=== PATIENT | male | born 1970 | race Caucasian/White ===

== ENCOUNTER 2017-03-02 16:51 | Emergency (ER) | payer SELFPAY ==
[2017-03-02 17:35] VITALS: BP 121/81
[2017-03-02] MEDS ORDERED: Lidocaine 1% 10 ML MDV INJECT ONE (18:18)
--- NOTE | 2017-03-02 18:25 | EDM.PDOC ---
ED HPI GENERAL MEDICAL PROBLEM - General Chief Complaint: Laceration Stated Complaint: LACERATION TO L HAND Time Seen by Provider: 03/02/17 18:18 Source of Information: Reports: Patient History Limitations: Reports: No Limitations - History of Present Illness INITIAL COMMENTS - FREE TEXT/NARRATIVE: Patient is a 46-year-old male who presents ED complaining of a small laceration measuring 1.2 cm to the dorsal aspect of the left hand between the thumb and the index finger. Bleeding controlled. 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 Tetanus status is up-to-date. Patient has no sensory/motor deficits distally. No other complaints. Left Hand Pain Score (Numeric/FACES): 8 - Related Data Allergies Allergy/AdvReac Type Severity Reaction Status Date / Time No Known Allergies Allergy Verified 01/31/15 17:18 Home Meds: Home Meds . [No Known Home Meds] 03/02/17 [History] Past Medical History - Past Health History Medical/Surgical History: Denies Medical/Surgical History Social & Family History - Tobacco Use Smoking Status *Q: Never Smoker Second Hand Smoke Exposure: No - Caffeine Use Caffeine Use: Reports: Coffee - Alcohol Use Days Per Week of Alcohol Use: 3 Number of Drinks Per Day: 6 Total Drinks Per Week: 18 - Recreational Drug Use Recreational Drug Use: No ED ROS GENERAL - Review of Systems Review Of Systems: ROS reveals no pertinent complaints other than HPI. ED EXAM, SKIN/RASH Exam: See Below Exam Limited By: No Limitations General Appearance: Alert, WD/WN, No Apparent Distress Ears: Hearing Grossly Normal Nose: Normal Inspection Throat/Mouth: Normal Voice, No Airway Compromise Neck: Normal Inspection, Supple Respiratory/Chest: No Respiratory Distress, No Accessory Muscle Use Cardiovascular: Normal Peripheral Pulses, Regular Rate, Rhythm Peripheral Pulses: 2+: Radial (R) Neurological: Alert, Oriented, Normal Cognition, No Motor/Sensory Deficits Psychiatric: Normal Affect, Normal Mood Skin: Warm, Dry, Normal Color Location, Skin: Other (1.2 cm deep laceration to the dorsal aspect of left hand. No foreign objects present. Benign exam to the fingers or any parts of the hand.) ED SKIN PROCEDURES - Laceration/Wound Repair Left Hand Lac/Wound length In cm: 1.2 Appearance: Subcutaneous, Clean Distal NVT: Neuro & Vascular Intact, No Tendon Injury Anesthetic Type: Local Local Anesthesia - Lidocaine (Xylocaine): 1% Plain Local Anesthetic Volume: 4cc Skin Prep: Chlorhexidine (Hibiciens), Saline, Sterile Drape Exploration/Debridement/Repair: Wound Explored, In a Bloodless Field, Explored to Base, No Foreign Material Found Closed with: Sutures Suture Size: 4-0 # of Sutures: 3 Suture Type: Prolene, Interrupted, Simple Sterile Dressing Applied: Provider Tetanus Status Addressed: Yes Complications: No Course - Vital Signs Last Recorded V/S: Last Vital Signs Temp 98.8 F 03/02/17 17:34 Pulse 74 03/02/17 17:34 Resp 20 03/02/17 17:34 BP 121/81 03/02/17 17:34 Pulse Ox 96 03/02/17 17:34 - Orders/Labs/Meds Meds: Medications Discontinued Medications Generic Name Dose Route Start Last Admin Trade Name Van PRN Reason Stop Dose Admin Lidocaine HCl 10 ml 03/02/17 18:18 03/02/17 18:27 Xylocaine 1% INJECT 03/02/17 18:19 10 ml ONETIME ONE Administration - Re-Assessments/Exams Free Text/Narrative Re-Assessment/Exam: Ordered 1% lidocaine. Laceration closed no competitions. Discharge instructions as documented. Departure - Departure Time of Disposition: 18:54 Disposition: Home, Self-Care 01 Condition: Good Clinical Impression: Laceration of hand Qualifiers: Encounter type: initial encounter Foreign body presence: without foreign body Laterality: left Qualified Code(s): S61.412A - Laceration without foreign body of left hand, initial encounter - Discharge Information Instructions: Laceration Care, Adult, [id number], Stitches, Sloan, or Adhesive Wound Closure, [id number] Referrals: PCP,None [Primary Care Provider] - Forms: ED Department Discharge Additional Instructions: Cleanse site twice daily with soap and water, pat dry, reapply triple antibiotic ointment, and dressing. Do not soak wound. Keep wound clean and dry. Follow-up with a provider at [facility] in 10 days for suture removal. Return to the ED for any new or worsening symptoms.
== END 2017-03-02 18:54 | disposition home or self-care (01) ==
LOC: JD.ED 16:51
DX: S61.412A Laceration without foreign body of left hand, initial encounter (principal); W26.0XXA Contact with knife, initial encounter
CPT/HCPCS: 12001; 99282-25; 99283-25

== ENCOUNTER 2018-01-04 04:08 | Emergency (ER) | payer SELFPAY ==
[2018-01-04 04:17] VITALS: BP 114/64
[2018-01-04] MEDS ORDERED: methylPREDNISolone Sodium Succinate 125 MG/2 ML SDV IM ONE (04:32)
--- NOTE | 2018-01-04 04:40 | EDM.PDOC ---
ED HPI GENERAL MEDICAL PROBLEM - General Chief Complaint: Upper Extremity Injury/Pain Stated Complaint: LEFT ARM UNABLE TO MOVE... Time Seen by Provider: 01/04/18 04:21 Source of Information: Reports: Patient History Limitations: Reports: No Limitations - History of Present Illness INITIAL COMMENTS - FREE TEXT/NARRATIVE: This is a 47-year-old male. Apparently he got drunk this evening and he laid down and laid on his left arm and he when he awoke about 30 minutes ago he was unable to extend his wrist and he has numbness on his dorsal forearm and hand. He has much decreased in strength on the left hand as well. He is able to use the elbow without difficulty and raise his upper arm with the shoulder without difficulty he just has a hard time gripping as well as got wrist drop. He denies any other acute injuries he denies any other weakness. Left Arm Pain Score (Numeric/FACES): 0 - Related Data Allergies Allergy/AdvReac Type Severity Reaction Status Date / Time No Known Allergies Allergy Verified 01/04/18 04:17 Home Meds: Home Meds predniSONE 40 mg PO WITHBREAKFAST #5 tab 01/04/18 [Rx] Past Medical History - Past Health History Medical/Surgical History: Denies Medical/Surgical History Social & Family History - Tobacco Use Smoking Status *Q: Current Every Day Smoker Years of Tobacco use: 20 Packs/Tins Daily: 0.5 Used Tobacco, but Quit: No - Caffeine Use Caffeine Use: Reports: Coffee - Recreational Drug Use Recreational Drug Use: No Review of Systems - Review of Systems Review Of Systems: See Below Constitutional: Denies: Chills, Fever Eyes: Reports: No Symptoms Ears: Reports: No Symptoms Nose: Reports: No Symptoms Mouth/Throat: Reports: No Symptoms Respiratory: Reports: No Symptoms Cardiovascular: Reports: No Symptoms GI/Abdominal: Reports: No Symptoms Genitourinary: Reports: No Symptoms Musculoskeletal: Reports: Other (As per history of present illness) Skin: Reports: Other (As per history of present illness) Neurological: Reports: Numbness, Weakness Psychiatric: Reports: No Symptoms ED EXAM, GENERAL - Physical Exam Exam: See Below Exam Limited By: No Limitations General Appearance: Alert, WD/WN, No Apparent Distress Eye Exam: Bilateral Eye: Normal Inspection Ears: Normal External Exam Nose: Normal Inspection Throat/Mouth: Normal Inspection, Normal Lips, Normal Voice, No Airway Compromise Head: Normocephalic Neck: Supple Respiratory/Chest: No Respiratory Distress Back Exam: Full Range of Motion Extremities: Other (His left upper extremity he is able to move his shoulder with no difficulty in his elbow with no difficulty, however he has numbness down his dorsal forearm into the dorsal hand but not his fingers, he has a wrist drop and has difficult time in extending the wrist, when he attempts to pari mutuel clerk my hand he tends to flex the wrist at the same time, this all suggests a radial nerve palsy) Neurological: Alert, Oriented Psychiatric: Anxious Skin Exam: Warm, Dry Course - Vital Signs Last Recorded V/S: Last Vital Signs Temp 98.1 F 01/04/18 04:14 Pulse 70 01/04/18 04:14 Resp 18 01/04/18 04:14 BP 114/64 01/04/18 04:14 Pulse Ox 98 01/04/18 04:14 - Orders/Labs/Meds Orders: Active Orders 24 hr Category Date Time Status methylPREDNISolone Sod Succ [Solu-MEDROL] Med 01/04/18 04:32 Once 125 mg IM ONETIME ONE Departure - Departure Time of Disposition: 04:35 Disposition: Home, Self-Care 01 Condition: Fair Clinical Impression: Acute radial nerve palsy of left upper extremity - Discharge Information *PRESCRIPTION DRUG MONITORING PROGRAM REVIEWED*: Not Applicable *COPY OF PRESCRIPTION DRUG MONITORING REPORT IN PATIENT DEANN: Not Applicable Prescriptions: predniSONE 40 mg PO WITHBREAKFAST #5 tab Referrals: Jose Manuel Marie MD [Physician] - Forms: ED Department Discharge, ED Return to Work/School Form Additional Instructions: It is very important that you start the prednisone Friday morning and take it for 5 days, it also is very important that you gently massage the muscles in your left forearm and continue to try to use those muscles gently and pari mutuel clerk gently throughout the day, you must follow up with Dr. Marie' and call his Office on Friday for he is the specialist who is able to help with this radial nerve palsy, under no circumstances are you to get drunk again since you can cause further damage to the radial nerve if you lay on your left arm again, return to the ER as needed - My Orders Last 24 Hours: My Active Orders 01/04/18 04:32 methylPREDNISolone Sod Succ [Solu-MEDROL] 125 mg IM ONETIME ONE - Assessment/Plan Last 24 Hours: My Active Orders 01/04/18 04:32 methylPREDNISolone Sod Succ [Solu-MEDROL] 125 mg IM ONETIME ONE
== END 2018-01-04 04:46 | disposition home or self-care (01) ==
LOC: JD.ED 04:08
DX: G56.32 Lesion of radial nerve, left upper limb (principal); F17.210 Nicotine dependence, cigarettes, uncomplicated
CPT/HCPCS: 96372; 99283; J2930; 99284

== ENCOUNTER 2019-11-16 16:37 | Emergency (ER) | payer SELFPAY ==
[2019-11-16 16:59] VITALS: BP 120/93; PULSE 95
[2019-11-16] MEDS ORDERED: Ketorolac 60 MG/2 ML SDV IM ONE (17:17)
--- NOTE | 2019-11-16 17:27 | EDM.PDOC ---
ED HPI GENERAL MEDICAL PROBLEM - General Chief Complaint: Lower Extremity Injury/Pain Stated Complaint: RT LOWER LEG SWOLLEN Time Seen by Provider: 11/16/19 17:04 Source of Information: Reports: Patient, RN Notes Reviewed History Limitations: Reports: No Limitations - History of Present Illness INITIAL COMMENTS - FREE TEXT/NARRATIVE: Patient is a 49-year-old male who presents to the ED for the evaluation of a right lower leg issue. Patient notes yesterday he noticed a small painful bump on the back of his right lower leg. He notes that he woke up this morning around 2:30 AM, and his whole leg was swollen, red/hot and very painful. He did go to the clinic this morning, and they believe this to be a cellulitis and started him on Keflex, states he did take 1 dose this morning. Patient states he is somewhat worried about a blood clot, but he has no history of blood clots. 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 Patient denies any other sick- like symptoms, fever/chills, cough/shortness of breath, nausea/v omiting/diarrhea. He denies any numbness or tingling distal to the area of concern. Right Leg Pain Score (Numeric/FACES): 8 - Related Data Allergies Allergy/AdvReac Type Severity Reaction Status Date / Time No Known Allergies Allergy Verified 11/16/19 16:58 Home Meds: Home Meds predniSONE 40 mg PO WITHBREAKFAST #5 tab 01/04/18 [Rx] Past Medical History - Past Health History Medical/Surgical History: Denies Medical/Surgical History Psychiatric History: Reports: Anxiety Social & Family History - Tobacco Use Smoking Status *Q: Light Tobacco Smoker Years of Tobacco use: 1 Packs/Tins Daily: 0.2 Second Hand Smoke Exposure: No - Caffeine Use Caffeine Use: Reports: Coffee - Recreational Drug Use Recreational Drug Use: No Review of Systems - Review of Systems Review Of Systems: Comprehensive ROS is negative, except as noted in HPI. ED EXAM, GENERAL - Physical Exam Exam: See Below Exam Limited By: No Limitations General Appearance: Alert, WD/WN, No Apparent Distress Respiratory/Chest: No Respiratory Distress, Lungs Clear, Normal Breath Sounds, No Accessory Muscle Use, Chest Non-Tender Cardiovascular: Normal Peripheral Pulses, Regular Rate, Rhythm, No Murmur Peripheral Pulses: 2+: Dorsalis Pedis (L), Dorsalis Pedis (R) Extremities: Normal Capillary Refill, Leg Pain (RLE), Increased Warmth (RLE), Redness (RLE) Neurological: Alert, Oriented, Normal Cognition, No Motor/Sensory Deficits Psychiatric: Normal Affect, Normal Mood Skin Exam: Warm, Dry, Intact, No Rash, Erythema (to RLE) Course - Vital Signs Last Recorded V/S: Last Vital Signs Temp 99.0 F 11/16/19 16:54 Pulse 95 11/16/19 16:54 Resp 16 11/16/19 16:54 BP 120/93 H 11/16/19 16:54 Pulse Ox 99 11/16/19 16:54 - Orders/Labs/Meds Meds: Medications Discontinued Medications Generic Name Dose Route Start Last Admin Trade Name Freq PRN Reason Stop Dose Admin Ketorolac Tromethamine 60 mg 11/16/19 17:17 11/16/19 17:24 Toradol IM 11/16/19 17:18 60 mg ONETIME ONE Administration - Re-Assessments/Exams Free Text/Narrative Re-Assessment/Exam: 11/16/19 17:31 Patient presents to the ED for evaluation of his right lower extremity issue. Does appear he has a cellulitis, but due to the unilateral swelling, ultrasound will be performed to rule out DVT. Patient will be given 60 mg IM Toradol for initial pain management. 11/16/19 20:19 Sound has been done, and demonstrates no sign of a DVT. There is a mild amount of subcutaneous edema, which is appropriate for cellulitis. Patient will be discharged home with general recommendations. Departure - Departure Time of Disposition: 20:20 Disposition: Home, Self-Care 01 Condition: Good Clinical Impression: Cellulitis Qualifiers: Site of cellulitis: extremity Site of cellulitis of extremity: lower extremity Laterality: right Qualified Code(s): L03.115 - Cellulitis of right lower limb - Discharge Information *PRESCRIPTION DRUG MONITORING PROGRAM REVIEWED*: No *COPY OF PRESCRIPTION DRUG MONITORING REPORT IN PATIENT DEANN: No Instructions: Cellulitis, Adult, [id number] Referrals: PCP,None [Primary Care Provider] - Forms: ED Department Discharge Additional Instructions: You were evaluated in the ER today regarding a suspected skin infection/possible blood clot. Ultrasound demonstrated no sign of a blood clot within the right lower leg. It does appear that you have a cellulitis. Which is a skin infection that is treated with antibiotics.you were already given a prescription for Keflex, please take as previously prescribed. Please note that this antibiotic will take at least 48 hours to start working appropriately. You may try to use heat/ice packs to the area to help reduce pain/swelling. Please try to elevate the extremity as much as possible as well to help relieve some of the swelling. You may take 500 mg Tylenol or 600 mg ibuprofen every 6 hours as needed for further pain relief. Do not exceed 4000 mg Tylenol or 3200 mg ibuprofen in a 24-hour time span. Please return to the ER at any time if your symptoms change or worsen. Sepsis Event Note (ED) - Evaluation Sepsis Screening Result: No Definite Risk - Focused Exam Vital Signs: Vital Signs Temp Pulse Resp BP Pulse Ox 11/16/19 16:54 99.0 F 95 16 120/93 H 99
--- NOTE | 2019-11-16 20:07 | US ---
Right lower extremity deep venous ultrasound: Duplex and color Doppler evaluation was obtained of the right common femoral, proximal greater saphenous, superficial femoral, popliteal, posterior tibial and peroneal veins. Findings: Mild amount of subcutaneous edema is seen. Normal phasic flow, augmentation and compression is seen. Impression: 1. Mild subcutaneous edema. 2. No evidence of deep venous thrombosis within the right lower extremity or within the left common femoral vein. Diagnostic code #2 This report was dictated in MDT
== END 2019-11-16 20:45 | disposition home or self-care (01) ==
LOC: JD.ED 16:37
DX: L03.115 Cellulitis of right lower limb (principal); F17.210 Nicotine dependence, cigarettes, uncomplicated
CPT/HCPCS: 93971; 96372; 99283; J1885

== ENCOUNTER 2020-10-31 18:10 | Emergency (ER) | payer OTHER ==
[2020-10-31 18:40] VITALS: PULSE 120
[2020-10-31] MEDS ORDERED: Sodium Chloride 0.9% 10 ML Syringe FLUSH PRN (18:55)
[2020-10-31] MEDS ORDERED: methylPREDNISolone Sodium Succinate 125 MG/2 ML SDV IVPUSH ONE (18:56)
[2020-10-31] MEDS ORDERED: HYDROmorphone 1 MG/ML Syringe IVPUSH ONE (18:56)
[2020-10-31] MEDS ORDERED: Ketorolac 30 MG/ML SDV IVPUSH ONE (18:56)
--- NOTE | 2020-10-31 19:19 | EDM.PDOC ---
ED HPI GENERAL MEDICAL PROBLEM - General Chief Complaint: Lower Extremity Injury/Pain Stated Complaint: BACK PAIN/ LT LEG PAIN Time Seen by Provider: 10/31/20 18:46 Source of Information: Reports: Patient History Limitations: Reports: No Limitations - History of Present Illness INITIAL COMMENTS - FREE TEXT/NARRATIVE: The patient presents with left leg pain. This started a couple weeks ago. He had no injury. 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 He went to [facility] and they gave him some prednisone and it helped. He stopped taking it because it felt better. Last night the pain started up again. He was told it was sciatica. He has some mild pain in the back but it mostly shoots down his leg. He cannot get comfortable and no over the counter medications have been helping. He has some numbness to his left lateral foot. He has no weakness but he cannot stand up strait due to the pain. He has no bowel or bladder problems. Onset: Gradual Duration: Day(s): (Yesterday) Location: Reports: Lower Extremity, Left Quality: Reports: Sharp Severity: Severe Improves with: Reports: Immobilization Worsens with: Reports: Movement Context: Denies: Trauma Associated Symptoms: Reports: No Other Symptoms Left Posterior Leg Pain Score (Numeric/FACES): 10 - Related Data Allergies Allergy/AdvReac Type Severity Reaction Status Date / Time No Known Allergies Allergy Verified 10/31/20 18:39 Home Meds: Home Meds Hydrocodone/Acetaminophen [Hydrocodone-Acetamin 5-325 mg] 1 - 2 each PO Q6H PRN #15 tablet 10/31/20 [Rx] diazePAM [Valium] 5 mg PO TID PRN #20 tablet 10/31/20 [Rx] predniSONE [Prednisone] 40 mg PO DAILY #10 tablet 10/31/20 [Rx] Past Medical History - Past Health History Medical/Surgical History: Denies Medical/Surgical History Psychiatric History: Reports: Anxiety Social & Family History - Tobacco Use Tobacco Use Status *Q: Current Every Day Tobacco User Years of Tobacco use: 30 Packs/Tins Daily: 0.5 - Caffeine Use Caffeine Use: Reports: Coffee - Recreational Drug Use Recreational Drug Use: No Review of Systems - Review of Systems Review Of Systems: See Below Constitutional: Reports: No Symptoms Eyes: Reports: No Symptoms Ears: Reports: No Symptoms Nose: Reports: No Symptoms Mouth/Throat: Reports: No Symptoms Respiratory: Reports: No Symptoms Cardiovascular: Reports: No Symptoms GI/Abdominal: Reports: No Symptoms Genitourinary: Reports: No Symptoms Musculoskeletal: Reports: Back Pain, Other (left leg pain) ED EXAM, GENERAL - Physical Exam Exam: See Below Exam Limited By: No Limitations General Appearance: Alert, No Apparent Distress Ears: Normal External Exam Nose: Normal Inspection Head: Atraumatic, Normocephalic Neck: Normal Inspection Respiratory/Chest: No Respiratory Distress, Lungs Clear, Normal Breath Sounds Cardiovascular: Regular Rate, Rhythm, No Edema, No Murmur GI/Abdominal: Soft, Non-Tender, No Organomegaly, No Mass Back Exam: Other (Mild pain upon palpation to the left lower back) Extremities: Other (pain upon palpation to the left lateral thigh. Good pulses distally and no edema.) Neurological: Alert, Oriented, Other (mild numbness to the left lateral foot.) Course - Vital Signs Last Recorded V/S: Last Vital Signs Temp 97.8 F 10/31/20 18:36 Pulse 120 H 10/31/20 18:36 Resp 16 10/31/20 18:36 BP Pulse Ox 100 10/31/20 18:36 - Orders/Labs/Meds Orders: Active Orders 24 hr Category Date Time Status Peripheral IV Care [RC] . DIRECTED Care 10/31/20 18:55 Active Sodium Chloride 0.9% [Saline Flush] Med 10/31/20 18:55 Active 10 ml FLUSH ASDIRECTED PRN Peripheral IV Insertion Adult [OM.PC] Routine Oth 10/31/20 18:55 Ordered Medication Orders Sodium Chloride (Sodium Chloride 0.9% 10 Ml Syringe) 10 ml FLUSH ASDIRECTED PRN PRN Reason: Keep Vein Open Last Admin: 10/31/20 19:10 Dose: 10 ml Documented by: VITALY Meds: Medications Generic Name Dose Route Start Last Admin Trade Name Freq PRN Reason Stop Dose Admin Sodium Chloride 10 ml 10/31/20 18:55 10/31/20 19:10 Sodium Chloride 0.9% 10 Ml Syringe FLUSH 10 ml ASDIRECTED PRN Administration Keep Vein Open Discontinued Medications Generic Name Dose Route Start Last Admin Trade Name Freq PRN Reason Stop Dose Admin Diazepam 5 mg 10/31/20 20:08 10/31/20 20:20 Diazepam 10 Mg/2 Ml Syringe IVPUSH 10/31/20 20:09 5 mg ONETIME ONE Administration Hydromorphone HCl 1 mg 10/31/20 18:56 10/31/20 19:09 Hydromorphone 1 Mg/Ml Syringe IVPUSH 10/31/20 18:57 1 mg ONETIME ONE Administration Hydromorphone HCl 0.5 mg 10/31/20 20:09 10/31/20 20:22 Hydromorphone 0.5 Mg/0.5 Ml Syringe IVPUSH 10/31/20 20:10 0.5 mg ONETIME ONE Administration Ketorolac Tromethamine 30 mg 10/31/20 18:56 10/31/20 19:07 Ketorolac 30 Mg/Ml Sdv IVPUSH 10/31/20 18:57 30 mg ONETIME ONE Administration Methylprednisolone Sodium Succinate 125 mg 10/31/20 18:56 10/31/20 19:08 Methylprednisolone Sodium Succinate 125 Mg/2 Ml Sdv IVPUSH 10/31/20 18:57 125 mg ONETIME ONE Administration - Re-Assessments/Exams Free Text/Narrative Re-Assessment/Exam: 10/31/20 19:19 I ordered an IV saline lock, dilaudid 1mg IV, toradol 30mg IV, solu-medrol 125mg IV and an x-ray of his back. 10/31/20 21:08 The x-ray shows minimal degenerative change. Straightening of the lordotic curve within the lumbar spine as noted above. Nothing acute is seen. He said he feels worse. I gave him valium 5mg IV and dilaudid 0.5mg IV and he feels better. I will get him on some prednisone, valium and hydrocodone. Departure - Departure Time of Disposition: 21:15 Disposition: Home, Self-Care 01 Condition: Good Clinical Impression: Low back pain Qualifiers: Chronicity: acute Back pain laterality: left Sciatica presence: with sciatica Sciatica laterality: sciatica of left side Qualified Code(s): M54.42 - Lumbago with sciatica, left side - Discharge Information *PRESCRIPTION DRUG MONITORING PROGRAM REVIEWED*: Not Applicable *COPY OF PRESCRIPTION DRUG MONITORING REPORT IN PATIENT DEANN: Not Applicable Prescriptions: Hydrocodone/Acetaminophen [Hydrocodone-Acetamin 5-325 mg] 1 - 2 each PO Q6H PRN #15 tablet PRN Reason: Pain predniSONE [Prednisone] 40 mg PO DAILY #10 tablet diazePAM [Valium] 5 mg PO TID PRN #20 tablet PRN Reason: Pain Referrals: PCP,None [Primary Care Provider] - Jen Abrams MD [Physician] - 1 Week Forms: ED Department Discharge, ED Return to Work/School Form Additional Instructions: Take the prednisone daily for 5 days. Take the valium 5mg by mouth every 8 hours as needed for back pain. If that is not helping try the hydrocodone. Do not drive or work when taking the valium and hydrocodone. Follow up with Dr Abrams or any other provider in [facility]. If this does not get better, you may need an MRI of your back to look at the discs and nerves. Please return if you are worse. Sepsis Event Note (ED) - Evaluation Sepsis Screening Result: No Definite Risk - Focused Exam Vital Signs: Vital Signs Temp Pulse Resp Pulse Ox 10/31/20 18:36 97.8 F 120 H 16 100 - My Orders Last 24 Hours: My Active Orders 10/31/20 18:55 Peripheral IV Care [RC] . DIRECTED Sodium Chloride 0.9% [Saline Flush] 10 ml FLUSH ASDIRECTED PRN Peripheral IV Insertion Adult [OM.PC] Routine - Assessment/Plan Last 24 Hours: My Active Orders 10/31/20 18:55 Peripheral IV Care [RC] . DIRECTED Sodium Chloride 0.9% [Saline Flush] 10 ml FLUSH ASDIRECTED PRN Peripheral IV Insertion Adult [OM.PC] Routine
--- NOTE | 2020-10-31 20:02 | CR ---
Lumbar spine: AP, lateral and coned-down lateral views centered to the lumbosacral junction were obtained. Comparison: No prior lumbar spine imaging is available. Minimal disc space narrowing is seen at L5-S1 with slight anterior osteophytes. Other disc spaces and vertebral body heights are maintained. Very minimal scattered anterior and lateral osteophytes are noted. Sacroiliac joints are normal. Straightening of the normal lordotic curve is seen which can be due to muscle spasm as well as congenital. Pedicles are intact. Visualized transverse and spinous processes are intact. Impression: 1. Minimal degenerative change. 2. Straightening of the lordotic curve within the lumbar spine as noted above. 3. Nothing acute is seen. Diagnostic code #2
[2020-10-31] MEDS ORDERED: HYDROmorphone 0.5 MG/0.5 ML Syringe IVPUSH ONE (20:09)
== END 2020-10-31 21:41 | disposition home or self-care (01) ==
LOC: JD.ED 18:10
DX: M54.42 Lumbago with sciatica, left side (principal); Z72.0 Tobacco use
CPT/HCPCS: 72100; 96374; 96375; 96376; 99283; J1170; J1885; J2930; J3360

== ENCOUNTER 2023-01-14 18:38 | Emergency (ER) | payer OTHER ==
[2023-01-14 19:06] VITALS: BP 136/99; PULSE 74
[2023-01-14] MEDS ORDERED: Cephalexin 500 MG Cap PO ONE (22:00)
[2023-01-14] MEDS ORDERED: Acetaminophen/HYDROcodone 325-5 MG Tab PO ONE (22:19)
[2023-01-14] MEDS ORDERED: Diphtheria,Pertussis(Acell),Tetanus Vaccine 0.5 ML Syringe IM ONE (22:19)
== END 2023-01-14 22:25 | disposition home or self-care (01) ==
LOC: JD.ED 18:38
DX: S80.251A Superficial foreign body, right knee, initial encounter (principal); Z23 Encounter for immunization; W45.8XXA Other foreign body or object entering through skin, initial encounter
CPT/HCPCS: 73562; 90471; 90715; 99283; A9270

== ENCOUNTER 2023-02-12 10:00 | Day surgery (SDC) | payer OTHER ==
[~2023-02-12 10:00] MED LIST: Lactated Ringers 1,000 ML IV SCH; Sodium Chloride 0.9% 10 ML Syringe FLUSH PRN; Sodium Chloride 0.9% 10 ML Syringe FLUSH SCH
[2023-02-12] MEDS ORDERED: Midazolam 1 MG/ML 2 ML SDV IVPUSH ONE (11:12)
[2023-02-12] MEDS ORDERED: Propofol 200 MG/20 ML SDV ONE ×2 (11:14→12:08)
[2023-02-12] MEDS ORDERED: fentaNYL 100 MCG/2 ML SDV ONE (11:15)
[2023-02-12] MEDS ORDERED: Ketamine 500 mg/10 ML MDV ONE (11:15)
[2023-02-12] MEDS ORDERED: Ropivacaine 0.5% 5 MG/ML 30 ML SDV ONE (11:23)
[2023-02-12] MEDS ORDERED: Ondansetron 4 MG/2 ML SDV ONE (11:30)
[2023-02-12] MEDS ORDERED: ceFAZolin 2 GM Vial ONE (11:30)
[2023-02-12] MEDS ORDERED: Ondansetron 4 MG/2 ML SDV IVPUSH PRN (11:33)
[2023-02-12] MEDS ORDERED: fentaNYL 100 MCG/2 ML SDV IVPUSH PRN (11:33)
[2023-02-12] MEDS ORDERED: HYDROmorphone 0.5 MG/0.5 ML Syringe IVPUSH PRN (11:33)
[2023-02-12] MEDS ORDERED: Lidocaine 1% 10 ML MDV ONE (11:41)
[2023-02-12] MEDS ORDERED: Bupivacaine 0.25% 10 ML SDV ONE (11:41)
[2023-02-12 14:34] VITALS: BP 126/71; PULSE 72
== END 2023-02-12 13:30 | disposition home or self-care (01) ==
LOC: JD.SDS 10:00
PROVIDERS: ATTEND Orthopaedic Surgery
DX: M79.5 Residual foreign body in soft tissue (principal); F41.9 Anxiety disorder, unspecified; Z79.899 Other long term (current) drug therapy; Z88.8 Allergy status to other drugs, medicaments and biological substances; Z87.891 Personal history of nicotine dependence
CPT/HCPCS: 27372; 76000; J0690; J2405; J2704; J3010; J3490; J7120; 00400; J2795

== ENCOUNTER 2023-03-17 05:30 | Emergency (ER) | payer OTHER ==
[2023-03-17] MEDS ORDERED: Metoclopramide 10 MG/2 ML SDV IVPUSH ONE (06:13)
[2023-03-17] MEDS ORDERED: HYDROmorphone 1 MG/ML Syringe IVPUSH ONE (06:14)
[2023-03-17] MEDS ORDERED: Dextrose 5%-Lactated Ringers 1,000 ML IV SCH (06:15)
[2023-03-17 06:31] LABS: BASOPHILS PERCENT AUTO 0.2 % (0.0-1.0); EOSINOPHILS PERCENT AUTO 0.1 % (0.0-6.0); HEMATOCRIT 44.4 % (42.0-52.0); HEMOGLOBIN 15.6 gm/dl (14.0-18.0); IMMATURE GRAN ABSOLUTE AUTO 0.08 K/mm3 (0.00-0.05); IMMATURE GRAN PERCENT AUTO 0.6 % (0.0-0.4); LYMPHOCYTES ABSOLUTE AUTO 1.6 K/mm3 (1.0-4.8); MEAN CORPUSCULAR HEMOGLOBIN 34.3 pg (28.0-32.0); MEAN CORPUSCULAR HGB CONC 35.1 g/dl (32.0-36.0); MEAN CORPUSCULAR VOLUME 97.6 fl (83.0-99.0); MEAN PLATELET VOLUME 8.8 fl (9.4-12.4); MONOCYTES ABSOLUTE AUTO 0.8 K/mm3 (0.0-0.8); MONOCYTES PERCENT AUTO 5.4 % (0.0-8.0); NEUTROPHILS ABSOLUTE AUTO 11.8 K/mm3 (1.8-7.7); NEUTROPHILS PERCENT AUTO 82.7 % (41.0-71.0); PLATELET COUNT,PLT 314 K/mm3 (150-400); RED BLOOD CELL COUNT 4.55 M/mm3 (4.52-5.90); WHITE BLOOD CELL COUNT,WBC 14.29 K/mm3 (3.9-11.3)
[2023-03-17 06:50] LABS: A/G RATIO 0.9 (1-2); ALANINE AMINOTRANSFERASE,ALT 27 U/L (16-63); ALBUMIN 3.9 g/dl (3.4-5.0); ALKALINE PHOSPHATASE 76 U/L (46-116); ASPARTATE AMNIOTRANSFERASE,AST 27 U/L (15-37); BILIRUBIN TOTAL 0.3 mg/dL (0.2-1.0); BLOOD UREA NITROGEN,BUN 20 mg/dL (7-18); C-REACTIVE PROTEIN <0.2 mg/dL (<1.0); CARBON DIOXIDE,CO2 18 mEq/L (21-32); CHLORIDE,CL 96 mEq/L (98-107); EST CRCL DRUG DOSING (CG) 72.36 mL/min; ESTIMATED GFR 91 mL/min (>60); ETHANOL BLOOD MEDICAL 0.14 gm% (0.00); GLUCOSE RANDOM 97 mg/dL (70-99); PROTEIN TOTAL,TP 8.1 g/dl (6.4-8.2); SODIUM,NA 136 mEq/L (136-145)
[2023-03-17] MEDS ORDERED: Lactated Ringers 1,000 ML IV SCH (07:30)
[2023-03-17 12:15] VITALS: BP 109/61; PULSE 118
== END 2023-03-17 09:26 | disposition home or self-care (01) ==
LOC: JD.ED 05:30
DX: M54.41 Lumbago with sciatica, right side (principal); G89.29 Other chronic pain; T50.7X5A Adverse effect of analeptics and opioid receptor antagonists, initial encounter; R11.2 Nausea with vomiting, unspecified; Z88.8 Allergy status to other drugs, medicaments and biological substances; Z79.899 Other long term (current) drug therapy
CPT/HCPCS: 36415; 80053; 80307; 83690; 85025; 86140; 96361; 96374; 96375; 99284; J1170; J2765; J7120; J7121

== ENCOUNTER 2023-03-20 14:26 | Emergency (ER) | payer OTHER ==
[2023-03-20] MEDS ORDERED: predniSONE 20 MG Tab PO ONE (16:15)
[2023-03-20 18:18] VITALS: BP 128/85; PULSE 75
== END 2023-03-20 17:44 | disposition home or self-care (01) ==
LOC: JD.ED 14:26
DX: M47.27 Other spondylosis with radiculopathy, lumbosacral region (principal); Z79.899 Other long term (current) drug therapy; Z88.8 Allergy status to other drugs, medicaments and biological substances
CPT/HCPCS: 72100; 99283; J7512

== ENCOUNTER 2023-07-15 18:47 | Emergency (ER) | payer BC ==
[2023-07-15 19:30] LABS: BASOPHILS PERCENT AUTO 0.3 % (0.0-1.0); EOSINOPHILS PERCENT AUTO 0.2 % (0.0-6.0); HEMATOCRIT 39.8 % (42.0-52.0); HEMOGLOBIN 14.5 gm/dl (14.0-18.0); IMMATURE GRAN ABSOLUTE AUTO 0.04 K/mm3 (0.00-0.05); IMMATURE GRAN PERCENT AUTO 0.6 % (0.0-0.4); LYMPHOCYTES ABSOLUTE AUTO 0.9 K/mm3 (1.0-4.8); LYMPHOCYTES PERCENT AUTO 13.9 % (24.0-44.0); MEAN CORPUSCULAR HEMOGLOBIN 34.5 pg (28.0-32.0); MEAN CORPUSCULAR HGB CONC 36.4 g/dl (32.0-36.0); MEAN CORPUSCULAR VOLUME 94.8 fl (83.0-99.0); MEAN PLATELET VOLUME 9.6 fl (9.4-12.4); MONOCYTES ABSOLUTE AUTO 0.8 K/mm3 (0.0-0.8); MONOCYTES PERCENT AUTO 12.7 % (0.0-8.0); NEUTROPHILS ABSOLUTE AUTO 4.6 K/mm3 (1.8-7.7); NEUTROPHILS PERCENT AUTO 72.3 % (41.0-71.0); WHITE BLOOD CELL COUNT,WBC 6.31 K/mm3 (3.9-11.3)
[2023-07-15 19:34] LABS: PLATELET COUNT,PLT 56 K/mm3 (150-400)
[2023-07-15 19:52] LABS: SLIDE REVIEW ABNORMAL SMEAR
[2023-07-15 19:58] LABS: A/G RATIO 0.9 (1-2); ALBUMIN 3.1 g/dl (3.4-5.0); ANION GAP 18.2 (5-15); BILIRUBIN TOTAL 0.6 mg/dL (0.2-1.0); BUN/CREATININE RATIO 22.5 (14-18); CALCIUM 7.9 mg/dL (8.5-10.1); CREATININE 0.8 mg/dL (0.7-1.3); EST CRCL DRUG DOSING (CG) 87.69 mL/min; ETHANOL BLOOD MEDICAL 0.53 gm% (0.00); POTASSIUM,K 3.2 mEq/L (3.5-5.1); PROTEIN TOTAL,TP 6.4 g/dl (6.4-8.2); TSH 2.342 uIU/mL (0.358-3.74)
[2023-07-15 20:31] VITALS: BP 119/85; PULSE 100
== END 2023-07-15 20:33 | disposition home or self-care (01) ==
LOC: JD.ED 18:47
DX: F10.920 Alcohol use, unspecified with intoxication, uncomplicated (principal); Z88.8 Allergy status to other drugs, medicaments and biological substances; Z79.899 Other long term (current) drug therapy; Y90.2 Blood alcohol level of 40-59 mg/100 ml
CPT/HCPCS: 36415; 80053; 80143; 80179; 80307; 84443; 85025; 99282; 99284

== ENCOUNTER 2023-07-26 11:32 | Emergency (ER) | payer BC ==
[2023-07-26 12:44] LABS: BASOPHILS PERCENT AUTO 0.6 % (0.0-1.0); EOSINOPHILS PERCENT AUTO 0.4 % (0.0-6.0); HEMATOCRIT 28.8 % (42.0-52.0); HEMOGLOBIN 10.9 gm/dl (14.0-18.0); IMMATURE GRAN ABSOLUTE AUTO 0.32 K/mm3 (0.00-0.05); IMMATURE GRAN PERCENT AUTO 4.5 % (0.0-0.4); LYMPHOCYTES ABSOLUTE AUTO 0.5 K/mm3 (1.0-4.8); LYMPHOCYTES PERCENT AUTO 7.5 % (24.0-44.0); MEAN CORPUSCULAR HEMOGLOBIN 34.6 pg (28.0-32.0); MEAN CORPUSCULAR HGB CONC 37.8 g/dl (32.0-36.0); MEAN CORPUSCULAR VOLUME 91.4 fl (83.0-99.0); MONOCYTES ABSOLUTE AUTO 0.9 K/mm3 (0.0-0.8); MONOCYTES PERCENT AUTO 12.4 % (0.0-8.0); NEUTROPHILS ABSOLUTE AUTO 5.4 K/mm3 (1.8-7.7); NEUTROPHILS PERCENT AUTO 74.6 % (41.0-71.0); NRBC ABSOLUTE 0.07 (0.00-0.02); PLATELET COUNT,PLT 86 K/mm3 (150-400); RED BLOOD CELL COUNT 3.15 M/mm3 (4.52-5.90); WHITE BLOOD CELL COUNT,WBC 7.18 K/mm3 (3.9-11.3)
[2023-07-26] MEDS: Sodium Chloride 0.9% 1,000 ML IV SCH ×2 (12:45→14:00)
[2023-07-26] MEDS: LORazepam 2 MG/ML SDV IVPUSH PRN (12:45)
[2023-07-26] MEDS: Folic Acid 1 MG Tab PO ONE (12:46)
[2023-07-26] MEDS: Thiamine 100 MG Tab PO ONE (12:46)
[2023-07-26 13:00] LABS: A/G RATIO 0.9 (1-2); ALBUMIN 2.8 g/dl (3.4-5.0); ANION GAP 19.7 (5-15); BILIRUBIN TOTAL 1.8 mg/dL (0.2-1.0); BUN/CREATININE RATIO 17.1 (14-18); CALCIUM 8.6 mg/dL (8.5-10.1); CREATININE 0.7 mg/dL (0.7-1.3); EST CRCL DRUG DOSING (CG) 94.94 mL/min; POTASSIUM,K 2.7 mEq/L (3.5-5.1); PROTEIN TOTAL,TP 5.8 g/dl (6.4-8.2)
[2023-07-26] MEDS ORDERED: Magnesium Sulfate (4.06 MEQ/ML) 5 GM/10 ML SDV IV ONE (13:33)
[2023-07-26 13:49] LABS: SLIDE REVIEW ABNORMAL SMEAR
[2023-07-26] MEDS: Potassium Chloride 10 MEQ in Premix Bag 1 BAG IV SCH (13:58)
[2023-07-26] MEDS: Magnesium Sulfate/Water 2 GM in Premix Bag 1 BAG IV ONE (13:59)
[2023-07-26] MEDS: Potassium Chloride 20 MEQ Tab.ER PO ONE (13:59)
[2023-07-26 16:32] LABS: APPEARANCE,URINE CLEAR (Clear); BILIRUBIN,URINE 1+ (Negative); COLOR,URINE YELLOW (Yellow); GLUCOSE,URINE NEGATIVE (Negative); KETONES,URINE 2+ (Negative); LEUKOCYTE ESTERASE,URINE NEGATIVE (Negative); NITRITE,URINE NEGATIVE (Negative); OCCULT BLOOD,URINE TRACE-INTACT (Negative); PH,URINE 6.5 (5.0-8.0); PROTEIN,URINE NEGATIVE (Negative)
[2023-07-26 16:42] LABS: BARBITURATE SCREEN,URINE NEGATIVE (CUTOFF=200); BENZODIAZEPINES SCREEN,URINE NEGATIVE (CUTOFF=150); BUPRENORPHINE SCREEN,URINE NEGATIVE (CUTOFF=10); METHADONE SCREEN, URINE NEGATIVE (CUT0FF=200); METHAMPHETAMINES SCREEN, URINE NEGATIVE (CUTOFF=500); OXYCODONE SCREEN,URINE NEGATIVE (CUT0FF=100); THC SCREEN,URINE 20 NG/ML NEGATIVE (CUTOFF=50)
[2023-07-26 16:43] LABS: BACTERIA,URINE FEW /hpf (FEW); MUCUS,URINE RARE /hpf (FEW); RBC,URINE 0-5 /hpf (0-5); SQUAMOUS EPITHELIAL CELLS,UR NOT SEEN /hpf (0-5); WBC,URINE 0-5 /hpf (0-5)
[2023-07-26 16:48] LABS: AMPHETAMINES SCREEN, URINE NEGATIVE (CUTOFF=500)
[2023-07-26 16:51] VITALS: BP 112/82; PULSE 108
== END 2023-07-26 16:37 ==
LOC: JD.ED 11:32
DX: F10.231 Alcohol dependence with withdrawal delirium (principal); K92.2 Gastrointestinal hemorrhage, unspecified; E87.1 Hypo-osmolality and hyponatremia; E87.6 Hypokalemia; E83.42 Hypomagnesemia; E80.6 Other disorders of bilirubin metabolism; R74.01 Elevation of levels of liver transaminase levels; K76.0 Fatty (change of) liver, not elsewhere classified; K82.8 Other specified diseases of gallbladder; Z79.899 Other long term (current) drug therapy; Z88.8 Allergy status to other drugs, medicaments and biological substances
CPT/HCPCS: 36415; 72128; 72131; 76705; 80053; 80306; 80307; 81001; 82140; 82272; 83690; 83735; 83930; 85025; 96365; 96366; 96375; 96376; 99285; A9270; J2060; J3475; J3480; J7030